=== PATIENT | female | born 2000 | race Two or more races ===

== ENCOUNTER 2023-01-03 21:00 | Emergency (ER) | payer MEDICAID ==
[~2023-01-03] VITALS: Ht 162.6 cm; Wt 62.6 kg
[2023-01-03] MEDS ORDERED: ONDANSETRON HCL/PF 4 MG/2 ML VIAL ONE (21:16)
[2023-01-03] MEDS ORDERED: ONDANSETRON HCL/PF 4 MG/2 ML VIAL IVP ONE (21:30)
[2023-01-03] MEDS ORDERED: IV NS 0.9% 1,000 ML BAG IV ONE (21:30)
--- NOTE | 2023-01-03 22:00 | NUR ---
TO ER BED 9. [facility] C/O DIARRHEA AND N/V X 1830. PT IS AAOX1, HX DOWN SYNDROME. RR EVEN AND NON LABORED. MOTHER AT BEDSIDE. CONNECTED TO MONITOR
[2023-01-03 22:01] LABS: BASOPHILS % (AUTO) 0.2 % (0.0-2.0); EOSINOPHILS % (AUTO) 0.2 % (0.0-6.0); HEMATOCRIT 43 % (33-45); HEMOGLOBIN 14.1 g/dL (11.5-14.8); LYMPHOCYTES # (AUTO) 0.5 K/uL (0.8-4.8); LYMPHOCYTES % (AUTO) 2.8 % (20.0-44.0); MEAN CORPUSCULAR HGB CONC 33 g/dl (31.0-36.0); MEAN CORPUSCULAR VOLUME 104 fL (82-100); MONOCYTES # (AUTO) 0.8 K/uL (0.1-1.30); MONOCYTES % (AUTO) 4.5 % (2.0-12.0); NEUTROPHILS # (AUTO) 16.7 K/uL (1.8-8.9); NEUTROPHILS % (AUTO) 92.3 % (43.0-81.0); PLATELET COUNT (AUTO) 367 K/uL (150-450); RED BLOOD CELL COUNT(AUTO) 4.17 MIL/uL (4.0-5.2); WHITE BLOOD COUNT (AUTO) 18.1 K/uL (4.3-11.0)
[2023-01-03 22:14] LABS: CALCIUM, SERUM 9.2 mg/dL (8.5-10.1); CREATININE 0.9 mg/dL (0.6-1.3); POTASSIUM 4.1 mmol/L (3.5-5.1)
--- NOTE | 2023-01-03 22:16 | NUR ---
IV LINE ESTABLISHED, [id number]
--- NOTE | 2023-01-03 22:17 | NUR ---
BLOOD COLLECTED AND SENT TO LAB
[2023-01-03 22:25] LABS: ALBUMIN 3.8 g/dL (3.4-5.0); BILIRUBIN,DIRECT 0.1 mg/dL (0.0-0.2); BILIRUBIN,TOTAL 0.4 mg/dL (0.2-1.0); TOTAL PROTEIN, SERUM 8.8 g/dL (6.4-8.2)
--- NOTE | 2023-01-03 22:58 | NUR ---
INFLUENZA SWAB COLLECTED
[2023-01-03] MEDS ORDERED: METOCLOPRAMIDE HCL 10 MG/2 ML VIAL IV ONE (23:00)
[2023-01-03] MEDS ORDERED: FAMOTIDINE/PF INJ 20 MG/2 ML VIAL IV ONE ×2 (23:00→23:02)
[2023-01-03] MEDS ORDERED: METOCLOPRAMIDE HCL 10 MG/2 ML VIAL ONE (23:02)
--- NOTE | 2023-01-03 23:14 | NUR ---
PT TAKEN TO CT SCAN VIA [facility]
[2023-01-04] MEDS ORDERED: ACETAMINOPHEN 325 MG TABLET PO ONE
[2023-01-04] MEDS ORDERED: KETOROLAC TROMETHAMINE INJ 30 MG/ML VIAL IV ONE (00:30)
[2023-01-04] MEDS ORDERED: CEFTRIAXONE 2 G in IV D5W 100 ML IV SCH (00:30)
[2023-01-04] MEDS ORDERED: KETOROLAC TROMETHAMINE INJ 30 MG/ML VIAL ONE (00:35)
[2023-01-04] MEDS ORDERED: IV NS 0.9% 1,000 ML BAG IV ONE (01:00)
--- NOTE | 2023-01-04 01:03 | NUR ---
URINE COLLECTED AND SENT TO LAB
[2023-01-04 02:18] LABS: BILIRUBIN,URINE NEGATIVE (NEGATIVE); COLOR,URINE YELLOW (YELLOW); LEUKOCYTE ESTERASE ,URINE NEGATIVE (NEGATIVE); NITRITE, URINE NEGATIVE (NEGATIVE); PH,URINE 6.5 (5.0-8.0); PROTEIN,URINE NEGATIVE (NEGATIVE); UGLUCOSE NEGATIVE (NEGATIVE); UROBILINOGEN,URINE 0.2 EU/dL (0.2)
[2023-01-04] MEDS ORDERED: METRONIDAZOLE 500MG/ NS 100ML 100 ML IV ONE ×2 (02:23→08:42)
[2023-01-04 02:38] LABS: BACTERIA,URINE Moderate /HPF (None Seen); SQUAMOUS EPITHELIAL CELL,UR Moderate /HPF (None Seen)
[2023-01-04] MEDS: METRONIDAZOLE 500MG/ NS 100ML 500 MG in PREMIX 1 EA IV SCH ×2 (02:50→08:43)
--- NOTE | 2023-01-04 05:39 | NUR ---
PER BHAKTI, ASSISTANT SCIENTIST, PT IS GOING TO [facility] UNDER THE CARE OF DR. CHACON. ROOM WILL BE AVAILABLE AFTER CHANGE OF SHIFT AND WILL CALL BACK FOR THE TRANSFER INFOR ONCE ROON IS AVAILABLE.
--- NOTE | 2023-01-04 06:19 | NUR ---
LACTIC 2.8
--- NOTE | 2023-01-04 07:15 | NUR ---
RECEIVED PT FROM ANDREW LEONARD PT ASLEEPY MOTHER AT bed side
--- NOTE | 2023-01-04 08:02 | NUR ---
call from teresita muir casework supervisor taking over from andrzej,[facility]oke with [facility] and they are securing a bed for her.
--- NOTE | 2023-01-04 09:50 | NUR ---
WATING FOR TRANSFER AND ROOM
--- NOTE | 2023-01-04 11:52 | NUR ---
CM CALL, WITH [facility] CM TO F/U ON TX
--- NOTE | 2023-01-04 12:01 | NUR ---
CORNELIO REGAL [phone] AWAITING BED ASSIGNMENT.
--- NOTE | 2023-01-04 12:20 | NUR ---
ACCEPTED BY WILVER DUGGAN ADMISSION TO [facility] BED # 312.B [phone] FOR REPORT RN - JUSTIN LEONARD [facility] - [place] - 0330 PM
--- NOTE | 2023-01-04 12:44 | NUR ---
HAND OFF TO BILL RENTAL MANAGER TO [facility] ROOM 312-B
--- NOTE | 2023-01-04 12:44 | NUR ---
NAME NURSE KELY LEONARD
--- NOTE | 2023-01-04 13:10 | NUR ---
PT TOLORATED PO INACK NO N/V AT THIS TIME BM SOFT WATER STOOL
[2023-01-04 15:56] VITALS: BP 120/58
--- NOTE | 2023-01-04 15:57 | NUR ---
TRANSFER TO [facility]IA [facility] NO SOB NO PAIN
== END 2023-01-04 16:23 | disposition admitted as inpatient to this hospital (09) ==
LOC: ER 21:09
DX: K52.9 Noninfective gastroenteritis and colitis, unspecified (principal); R11.2 Nausea with vomiting, unspecified; R10.84 Generalized abdominal pain; Z20.822 Contact with and (suspected) exposure to COVID-19
CPT/HCPCS: 99291; 74176; 96375 ×2; 71045; 96361; 93005; 87804 ×2; 87040 ×4; 85025; 80048; 83690; 80076; 36415 ×2; 96365; 96367; 96366; 87426; 84145; 87086; 83605 ×2; 81001; 84484; J3490; J2765; J2405; J7030 ×3; J0696; J1885; J7060; A4216; C9803; A4223 ×2